=== PATIENT | female | born 1970 | race Caucasian/White ===

== ENCOUNTER 2019-10-25 09:02 | Outpatient (CLI) | payer MEDICARE, SELFPAY ==
--- NOTE | 2019-10-25 09:14 | ECG_ITS ---
NAME OF STUDY: LEXISCAN SESTAMIBI STRESS TEST INDICATION: Chest Pain, LEXISCAN STRESS TEST ORDERING provider: Winifred Bridges CLINICAL INFORMATION: Chest pain INTERPRETATION: 1. The patient was brought to the laboratory where Lexiscan was infused over 20 seconds. The resting blood pressure was 113/80. Maximum blood pressure was 118/56. The resting heart rate was 72 beats per minute. The maximum heart rate is 108 beats per minute. 2. The baseline electrocardiogram reveals sinus rhythm with left atrial abnormality, poor R wave progression and nonspecific ST-T wave changes 3. With Lexiscan infusion, there were no ST segment changes to suggest ischemia. 4. The patient experienced no symptoms or arrhythmias during the examination. CONCLUSION: 1. Unremarkable Lexiscan infusion. 2. Nuclear imaging to follow. Electronically Signed On 10-25-2019 14:46:10 SPRAY CEMENTER by Tono Odonnell M.D. [email or web address]
--- NOTE | 2019-10-25 09:15 | NMCV_ITS ---
NM emilie perf SPECT r/s* [id number] LorenzoAshley Age: 49 Gender: F : 1970 Exam Date: 10/25/2019 09:48 Ordering Phys: Winifred Bridges Technologist: DEVAUGHN Castillo Exam Location: [facility] Indications: Chest pain STRESS TEST Please see separate stress test report in [facility] for full findings IMAGE PROTOCOL Rest/Stress 1 Lexiscan Day Radiopharmaceutical Dose (mCi) Administration Site Administered by Rest: Tc-99m 10.5 IV DEVAUGHN Castillo Sestamibi Stress:Tc-99m 31.1 IV DEVAUGHN Castillo Sestamibi Rest: 60 Discovery 630 Stress: 60 Discovery 630 0.4mg Lexiscan. Images obtained in supine and prone position. SPECT RESULTS Technical Quality: Good Raw Data Analysis: Normal, Breast attenuation, Soft tissue attenuation. 40DD chest wall Image Corrections: No attenuation or motion correction applied Summed Stress Score: 3 Summed Rest Score: 3 Summed Difference Score: 2 PERFUSION FINDINGS Large area of patchy decreased tracer uptake and fixed perfusion defect noted in basal to distal anteroseptal wall with small reversibility on both rest and stress images suggestive of old myocardial infarction versus scarring surrounded by mild area of jane-infarct ischemia. EKG segment will be documented separately. This represent old myocardial infarction in the region of LAD. FUNCTIONAL RESULTS (calculated via Gated SPECT) Stress Image LV EF (%): 58 Stress EDV (mL):103 TID: 1.03 Stress ESV (mL):43 Rest Image LV EF (%): 58 FUNCTIONAL FINDINGS: There appeared to be mid to distal anteroseptal wall hypokinesis IMPRESSIONS Large area of patchy decreased tracer uptake and fixed perfusion defect noted in basal to distal anteroseptal wall with small reversibility on both rest and stress images suggestive of old myocardial infarction versus scarring surrounded by mild area of jane-infarct ischemia. EKG segment will be documented separately. This represent old myocardial infarction in the region of LAD. Jarrell Cox MD (Electronically Signed) Final Date: 06 November 2019 14:37 S
[2019-10-25 09:30] VITALS: BMI 41.4
[2019-10-25] MEDS: regadenoson 0.4 Mg/5 ml Syringe IVP (11:26)
[2019-10-25 11:45] VITALS: BP 114/72; PULSE 91
== END 2019-10-25 09:03 | disposition home or self-care (01) ==
LOC: CDL 09:06
PROVIDERS: Family Provider Family Medicine; PCP Family Medicine; Visit Provider Nurse Practitioner Family
DX: R07.9 Chest pain, unspecified (principal)
CPT/HCPCS: 78452; 93017; A9500; J2785

== ENCOUNTER 2021-03-25 08:58 | Outpatient (CLI) | payer MEDICARE, SELFPAY ==
--- NOTE | 2021-03-25 09:16 | MM_ITS ---
WS: [id number] SCREENING DIGITAL MAMMOGRAM WITH CAD HISTORY: Screening. COMPARISON: 07/31/2014 and 09/22/2010 Bilateral CC and MLO views submitted. Computer aided detection analyzed. Breast composition: There are scattered areas of fibroglandular density. There is a new 5 mm asymmetr y seen only on the RIGHT MLO projection in the posterior inferior breast. This is probably fibrogland ular superimposed densities. Otherwise benign calcifications in each breast. MM/[place] [id number] IMPRESSION: BI-RADS: 0-Incomplete: Need additional imaging evaluation FOLLOW UP: Need Additional Imaging RIGHT breast: Spot compression views (MLO). True ML. Ultrasound to follow if ab normality persists.
== END 2021-03-25 08:59 | disposition home or self-care (01) ==
LOC: RADSHAW 09:03
PROVIDERS: Family Provider Family Medicine; PCP Family Medicine; Visit Provider Family Medicine
DX: Z12.31 Encounter for screening mammogram for malignant neoplasm of breast (principal)
CPT/HCPCS: 77067

== ENCOUNTER 2021-04-20 09:28 | Outpatient (CLI) | payer MEDICARE, SELFPAY ==
--- NOTE | 2021-04-20 09:35 | MM_ITS ---
WS: [id number] ADDITIONAL VIEWS RIGHT BREAST HISTORY: ABNORMAL RT MAMMOGRAM COMPARISON: 03/25/2021 and 07/31/2014 Compression views right CC and MLO projection. True ML also submitted. The asymmetry noted within the inferior RIGHT breast resolves with additional compression views. No r esidual abnormality. MM/[place] [id number] IMPRESSION: BI-RADS: 2-Benign FOLLOW-UP: 1 Year Follow-up Return to annual screening mammography.
== END 2021-04-20 09:29 | disposition home or self-care (01) ==
LOC: RADSHAW 09:34
PROVIDERS: Family Provider Family Medicine; PCP Family Medicine; Visit Provider Family Medicine
DX: R92.8 Other abnormal and inconclusive findings on diagnostic imaging of breast (principal)
CPT/HCPCS: 77065

== ENCOUNTER 2024-02-23 14:03 | Outpatient (CLI) | payer MEDICARE, SELFPAY ==
--- NOTE | 2024-02-23 14:06 | MM_ITS ---
WS: [id number] Bilateral screening 3D tomosynthesis digital mammogram, 02/23/2024 Clinical Data: SCREENING Comparison: 04/20/2021, 03/25/2021, 07/31/2014, 12/15/2011, 09/22/2010. Findings: The breast parenchymal pattern shows fibroglandular tissue. No spiculated masses or clustered calcifi cations are seen. There are no secondary signs of carcinoma. MM/[place] [id number] Impression: 1. Negative bilateral mammogram unchanged. 2. Recommend annual screening mammograms. BIRADS: 1-Negative FOLLOW UP: 1 Year Follow-up The CAD stock checkerer was used.
== END 2024-02-23 14:04 | disposition home or self-care (01) ==
LOC: RAD 14:03
PROVIDERS: Family Provider Family Medicine; PCP Family Medicine; Visit Provider Clinical Nurse Specialist Family Health
DX: Z12.31 Encounter for screening mammogram for malignant neoplasm of breast (principal)
CPT/HCPCS: 77063; 77067

== ENCOUNTER 2024-09-03 09:21 | Outpatient (CLI) | payer MEDICARE, SELFPAY ==
--- NOTE | 2024-09-03 09:26 | MR_ITS ---
WS: [id number] MRI LUMBAR SPINE NONCONTRAST TECHNIQUE: Sagittal T1, T2 and STIR imaging. Axial T1 and T2 imaging. CLINICAL INFORMATION: L SCIATICA WITH LEFT FOOT DROP COMPARISON: None. FINDINGS: Mild lumbar curve. No acute compression. No high-grade central canal stenosis. Shallow central protru sions in the cervical spine religious healer imaging at C4-C5 C5-C6 and C6-C7 with mild to moderate central eduardo l stenosis. Suggestion of myelomalacia at C4-5. Recommend cervical spine MRI. L1-L2: Mild annular bulging. Mild facet arthropathy. Spinal canal and foramen are patent. L2-L3: Mild annular bulging. Slight effacement of the ventral thecal sac. Mild RIGHT and no significa nt LEFT foraminal narrowing. Moderate facet arthropathy. L3-L4: Mild annular bulging. Mild central canal stenosis. Moderate facet arthropathy. Slight impingem ent on the traversing RIGHT greater than LEFT L4 nerve roots. Far LEFT foraminal protrusion slightly impinges the far exiting LEFT L3 nerve root L4-L5: Mild annular bulging. Mild central canal stenosis. Impingement traversing L5 nerve roots. Mode rate facet arthropathy. Mild LEFT foraminal narrowing. L5-S1: Small central protrusion with impingement on the S1 nerve root in the LEFT subarticular recess . Mild facet arthropathy. Mild LEFT foraminal narrowing. Visualized pelvic bony structures: Normal. Paravertebral soft tissues: Normal. MR/MR lumbar spine wo con* [id number] IMPRESSION: 1. Mild central canal stenosis L3-L4 and L4-L5 with narrowing of the subarticu lar recess bilaterally worse at LEFT L4-5. 2. Disc bulge L5-S1 with impingement LEFT S1 nerve root in the subarticular re cess. 3. Mild to moderate central canal stenosis in the cervical spine religious healer imaging with small disc protrusions C4-C6 with suggestion of myelomalacia in the cervi zulema cord at C4-5. Recommend cervical spine MRI. 4. Far LEFT foraminal protrusion L3-4 slightly contacts the far exiting LEFT L 3 nerve root laterally. 5. Mild LEFT L4-5 foraminal narrowing with a small LEFT foraminal protrusion.
== END 2024-09-03 09:22 | disposition home or self-care (01) ==
LOC: RAD 09:22
PROVIDERS: Family Provider Family Medicine; PCP Family Medicine; Visit Provider Family Medicine
DX: M50.20 Other cervical disc displacement, unspecified cervical region (principal); M48.02 Spinal stenosis, cervical region; M47.896 Other spondylosis, lumbar region; M51.371 Other intervertebral disc degeneration, lumbosacral region with lower extremity pain only
CPT/HCPCS: 72148

== ENCOUNTER 2024-09-11 08:32 | Outpatient (CLI) | payer MEDICARE, SELFPAY ==
--- NOTE | 2024-09-11 08:37 | MR_ITS ---
WS: [id number] MRI CERVICAL SPINE NONCONTRAST HISTORY: NECK PAIN COMPARISON: None available. Technique: Multiplanar, multisequence noncontrast imaging of the cervical spine. Straightening with slight reversal of the normal cervical lordosis. Disc spaces are narrowed and rajendra ccated, most significant at C4-5 and C5-6. Focal increased T2 signal in the central cervical cord at C4-5 extends over a length of 3.3 mm. Craniocervical junction, C1 and C2 relationship, odontoid process and soft tissues are normal. C2-C3: Tiny central disc protrusion. C3-C4: Tiny central disc protrusion. No stenosis. Very mild encroachment upon the ventral thecal sac. C4-C5: Large central disc protrusion with significant deformity and posterior displacement of the cer vical cord. This is also at the level of the myelomalacia. Disc osteophyte complexes extending into t he foramina. Severe central and bilateral foraminal stenosis, LEFT greater than RIGHT. C5-C6: Diffuse osteophytic ridging and annular disc bulging. Focal moderate LEFT paracentral disc ost eophyte with significant contact and displacement of the cervical cord. Severe central and bilateral foraminal stenosis. C6-C7: Osteophytic ridging encroaching upon the ventral thecal sac. Disc and osteophyte disease effac ing CSF. Severe central and bilateral foraminal stenosis. C7-T1: Small central disc protrusion. Mild central stenosis. Paraspinal soft tissue are normal. MR/MR cervical spin wo con* [id number] IMPRESSION: 1. 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 2. Severe central and bilateral foraminal stenosis at C4-5, C5-6 and C6-7 due to disc osteophyte disease and facet arthritis. 3. Small central disc protrusion and mild central stenosis at C7 and T1. 4. C2-3 and C3-4: Tiny central disc protrusions.
== END 2024-09-11 08:33 | disposition home or self-care (01) ==
LOC: RAD 08:34
PROVIDERS: Family Provider Family Medicine; PCP Family Medicine; Visit Provider Family Medicine
DX: M48.02 Spinal stenosis, cervical region (principal); M50.021 Cervical disc disorder at C4-C5 level with myelopathy; M50.20 Other cervical disc displacement, unspecified cervical region; M50.221 Other cervical disc displacement at C4-C5 level; M25.78 Osteophyte, vertebrae; M99.61 Osseous and subluxation stenosis of intervertebral foramina of cervical region; M50.222 Other cervical disc displacement at C5-C6 level
CPT/HCPCS: 72141

== ENCOUNTER 2025-03-27 08:44 | Outpatient (CLI) | payer MEDICARE, SELFPAY ==
--- NOTE | 2025-03-27 08:51 | MM_ITS ---
WS: [id number] BILATERAL SCREENING DIGITAL TOMOSYNTHESIS MAMMOGRAM WITH CAD HISTORY: SCREENING COMPARISON: 02/23/2024, 03/25/2021 Bilateral CC and MLO views with tomosynthesis and synthetic mammography submitted. Computer aided detection analyzed. Breast composition: There are scattered areas of fibroglandular density. No suspicious masses, microcalcifications or architectural distortion. Benign scattered calcifications in each breast. MM/MM scr BI tomosynthesis [id number] IMPRESSION: BI-RADS: 2 - Benign. FOLLOW UP: 1 Year Follow-up
== END 2025-03-27 08:45 | disposition home or self-care (01) ==
LOC: RAD 08:46
PROVIDERS: Family Provider Family Medicine; PCP Family Medicine; Visit Provider Family Medicine
DX: Z12.31 Encounter for screening mammogram for malignant neoplasm of breast (principal)
CPT/HCPCS: 77063; 77067

== ENCOUNTER → 2025-05-20 13:44 | Outpatient (BNVA) | payer MEDICARE, SELFPAY | PROVIDERS: Family Provider Family Medicine; PCP Family Medicine; Visit Provider Nurse Practitioner Family | DX: Q27.8 Other specified congenital malformations of peripheral vascular system (principal); L81.4 Other melanin hyperpigmentation; L57.8 Other skin changes due to chronic exposure to nonionizing radiation; D48.5 Neoplasm of uncertain behavior of skin; L57.0 Actinic keratosis | CPT/HCPCS: 11102; 17000; 99203 ==

== ENCOUNTER → 2025-06-04 10:58 | Outpatient (BNVA) | payer MEDICARE, SELFPAY | PROVIDERS: Family Provider Family Medicine; PCP Family Medicine; Visit Provider Dermatology | DX: C43.61 Malignant melanoma of right upper limb, including shoulder (principal) | CPT/HCPCS: 11606; 12034 ==

== ENCOUNTER → 2025-06-19 15:58 | Outpatient (BNVA) | payer MEDICARE, SELFPAY | PROVIDERS: Family Provider Family Medicine; PCP Family Medicine; Visit Provider Nurse Practitioner Family | DX: L72.0 Epidermal cyst (principal); R20.8 Other disturbances of skin sensation; R23.8 Other skin changes; R20.9 Unspecified disturbances of skin sensation; L57.8 Other skin changes due to chronic exposure to nonionizing radiation | CPT/HCPCS: 99213 ==

== ENCOUNTER → 2025-06-25 12:22 | Outpatient (BNVA) | payer MEDICARE, SELFPAY | PROVIDERS: Family Provider Family Medicine; PCP Family Medicine; Visit Provider Dermatology | DX: D48.5 Neoplasm of uncertain behavior of skin (principal); R23.8 Other skin changes; R20.8 Other disturbances of skin sensation; L53.8 Other specified erythematous conditions | CPT/HCPCS: 11403; 12032 ==